=== PATIENT | female | born 1955 | race American Indian/Alaskan Native ===

== ENCOUNTER 2017-04-12 11:19 | Inpatient (IN) | payer MEDICARE ==
[2017-04-12 11:50] LABS: Basophils % (Auto) 0.3 % (0.0-1.8); Eosinophils % (Auto) 0.2 % (0.0-4.3); Mean Corpuscular HGB Conc 31 % (30-34); Mean Corpuscular Hemoglobin 29 pg (28-32); Mean Corpuscular Volume 92 fl (79-97); Platelet Count 257 K/mm3 (140-440); Red Blood Count 4.79 M/mm3 (3.65-5.03); Red Cell Distribution Width 13.8 % (13.2-15.2); White Blood Count 10.3 K/mm3 (4.5-11.0)
--- NOTE | 2017-04-12 12:04 | Emergency Department Report ---
HPI - General Chief Complaint: Hyperglycemia Time Seen by Provider: 04/12/17 11:31 - HPI HPI: This is a 61 year-old female presents to the emergency department, sent over by her PCP at [facility], with the complaint of hyperglycemia. Patient says that she went there for a regular checkup but had been feeling very fatigued and weak for the past few days. She was found to have a blood sugar greater than 500 or "high" on the Accu-Chek at the PCP office. Patient is a fbu-pqaxouy-ydednuvti diabetic on glipizide 2.5 mg and says that she takes compliantly. She also says that she checks her sugar and her blood sugar has been reasonable lately. She does admit that she has tried a new diet that involves drinking smoothies and/or shakes. She also has a past medical history of hypertension and arthritis. She denies any chest pain, abdominal pain, nausea, vomiting, dysuria. She has not taken anything and was not given anything for her symptoms prior to presentation. ED Past Medical Hx - Past Medical History Hx Hypertension: Yes Hx Diabetes: Yes Hx Arthritis: Yes - Surgical History Additional Surgical History: gastric bypass 2012 - Social History Smoking Status: Never Smoker Substance Use Type: None - Medications Home Medications: Home Medications Medication Instructions Recorded Confirmed Last Taken Type Gabapentin [Neurontin] 800 mg PO TID 05/04/13 04/12/17 04/10/17 History HYDROcodone/APAP 10-325 [[place] 1 each PO Q6HR PRN #20 tablet 05/04/13 04/12/17 04/10/17 Rx 10-325 mg TAB] Triamter/Hctz 37.5-25 mg 1 tab PO QDAY 04/12/17 04/12/17 04/10/17 History [Maxzide-25] glipiZIDE [Glucotrol Xl] 2.5 mg PO DAILY 04/12/17 04/12/17 04/10/17 History ED Review of Systems ROS: Stated complaint: BLOOD SUGAR HIGH Other details as noted in HPI Comment: All other systems reviewed and negative Constitutional: denies: chills, fever Eyes: denies: eye pain, eye discharge, vision change ENT: denies: ear pain, throat pain Respiratory: denies: cough, wheezing Cardiovascular: denies: chest pain, palpitations Endocrine: increased thirst. denies: unexplained weight loss Gastrointestinal: denies: abdominal pain, nausea, diarrhea Genitourinary: denies: urgency, dysuria, discharge Musculoskeletal: denies: back pain, joint swelling, arthralgia Skin: denies: rash, lesions Neurological: denies: headache, weakness, paresthesias Physical Exam - Physical Exam Vital Signs: Vital Signs 04/12/17 11:21 Temperature 98 F Pulse Rate 99 H Respiratory 18 Rate Blood Pressure 122/87 O2 Sat by Pulse 97 Oximetry Physical Exam: GENERAL: The patient is well-developed well-nourished. HENT: Normocephalic. Atraumatic. Patient has moist mucous membranes. EYES: Extraocular motions are intact. Pupils equal reactive to light bilaterally. NECK: Supple. Trachea is midline. CHEST/LUNGS: Clear to auscultation. There is no respiratory distress noted. HEART/CARDIOVASCULAR: Regular. There is no tachycardia. There is no murmur. ABDOMEN: Abdomen is soft, nontender. Patient has normal bowel sounds. There is no abdominal distention. SKIN: Skin is warm and dry. NEURO: The patient is awake, alert, and oriented. The patient is cooperative. The patient has no focal neurologic deficits. The patient has normal speech. MUSCULOSKELETAL: There is no tenderness or deformity. There is no limitation range of motion. There is no evidence of acute injury. ED Course Vital Signs 04/12/17 11:21 Temperature 98 F Pulse Rate 99 H Respiratory 18 Rate Blood Pressure 122/87 O2 Sat by Pulse 97 Oximetry ED Medical Decision Making - Lab Data Result diagrams: 04/12/17 11:34 04/12/17 11:34 - Medical Decision Making Patient has a blood sugar of 850 and elevated osmolality. She is non-insulin- dependent and this is more likely to be HHNK than DKA. Placed on a insulin drip and will be admitted to the hospital and has been accepted by Dr. Gregory. - Differential Diagnosis DKA, HHNK, Non compliance Critical Care Time: No Critical care attestation.: If time is entered above; I have spent that time in minutes in the direct care of this critically ill patient, excluding procedure time. ED Disposition Clinical Impression: HHNC (hyperglycemic hyperosmolar nonketotic coma) Uncontrolled diabetes mellitus Qualifiers: Diabetes mellitus type: type 2 Diabetes mellitus complication status: with hyperosmolarity Diabetes mellitus complication detail: without coma Diabetes mellitus senior care insulin use: without senior care use Qualified Code(s): E11.00 - Type 2 diabetes mellitus with hyperosmolarity without nonketotic hyperglycemic -hyperosmolar coma ([facility]) Disposition: 09 OP ADMIT IP TO THIS HOSP Is pt being admited?: Yes Condition: Fair Instructions: Diabetes Mellitus Type 2 in Adults (ED) Time of Disposition: 13:51
[2017-04-12 12:06] LABS: Hemoglobin 13.7 gm/dl (10.1-14.3)
[2017-04-12 12:12] LABS: Albumin 4.1 g/dL (3.9-5); Albumin/Globulin Ratio 0.9 %; Bilirubin,Total 0.4 mg/dL (0.1-1.2); Calcium 9.4 mg/dL (8.4-10.2); Chloride 80.6 mmol/L (98-107); Potassium 5.4 mmol/L (3.6-5.0); Total Protein 8.7 g/dL (6.3-8.2)
[2017-04-12] MEDS ORDERED: D50W (25GM) Syringe IV PRN ×2 (12:28→13:00)
[2017-04-12] MEDS ORDERED: NACL 0.9% 1000 ML 1,000 ML IV ONE (12:29)
[2017-04-12] MEDS ORDERED: NACL 0.9% 1000 ML 1,000 ML ONE (12:31)
--- NOTE | 2017-04-12 12:48 | History and Physical Report ---
History of Present Illness Chief complaint: My blood sugar is high History of present illness: 61 YO Female with HTN, DM, OA presents to ED for evaluation. Pt states that she has been feeling tired for the past week. Pt acknowledges polydipsia, polyuria, and polyphagia. Pt presented to her PCP for evaluation for evaluation. Pt found to have a serum glucose of +500 on glucometer and was subsequently sent to ED for evaluation. Pt currently treated with glipizide 2.5 mg and says that she takes compliantly. Pt states that she checks her sugar and her blood sugar has been controlled. Pt acknowledges consuming a new diet that involves drinking smoothies and/or shakes but does not allow for monitoring of carbohydrates. Pt seen and evaluated in ED and found to have a serum glucose of 850, and initiated on insulin drip IAW DKA protocol and admitted to ICU. Pt symptoms improved with therapy, and serum glucose normalized. Pt subsquently downgraded to medical floor. Past History Past Medical History: arthritis, diabetes, hypertension Past Surgical History: Other (Gastric bypass) Social history: single. denies: smoking, alcohol abuse, prescription drug abuse Family history: diabetes, hypertension Medications and Allergies Allergies Allergy/AdvReac Type Severity Reaction Status Date / Time No Known Allergies Allergy Unverified 05/04/13 05:36 Home Medications Medication Instructions Recorded Confirmed Last Taken Type Gabapentin [Neurontin] 800 mg PO TID 05/04/13 04/12/17 04/10/17 History HYDROcodone/APAP 10-325 [[place] 1 each PO Q6HR PRN #20 tablet 05/04/13 04/12/17 04/10/17 Rx 10-325 mg TAB] Triamter/Hctz 37.5-25 mg 1 tab PO QDAY 04/12/17 04/12/17 04/10/17 History [Maxzide-25] glipiZIDE [Glucotrol Xl] 2.5 mg PO DAILY 04/12/17 04/12/17 04/10/17 History Active Meds: Active Medications Dextrose (D50w (25gm) Syringe) 0 ml IV PRN PRN PRN Reason: Hypoglycemia Sodium Chloride (Nacl 0.9% 1000 Ml) 1,000 mls @ 999 mls/hr IV BOLUS ONE Stop: 04/12/17 13:29 Last Admin: 04/12/17 12:33 Dose: 999 mls/hr Insulin Human Regular 100 (units/ Sodium Chloride) 100 mls @ 6 mls/hr IV TITR THOMAS; 6 UNITS/HR PRN Reason: Protocol Review of Systems Constitutional: no weight loss, no weight gain, no fever, no chills Ears, nose, mouth and throat: no ear pain, no ear discharge, no tinnitis, no decreased hearing, no nose pain Breasts: no change in shape, no swelling, no mass Cardiovascular: no chest pain, no orthopnea, no palpitations, no rapid/ irregular heart beat, no edema, no syncope Respiratory: no cough, no cough with sputum, no excessive sputum, no hemoptysis Gastrointestinal: no abdominal pain, no nausea, no vomiting, no diarrhea Genitourinary Female: no pelvic pain, no flank pain, no menorrhagia, no dysuria Rectal: no pain, no incontinence, no bleeding Musculoskeletal: no neck stiffness, no neck pain, no shooting arm pain, no arm numbness/tingling Integumentary: no rash, no pruritis, no redness, no sores, no wounds Neurological: no head injury, no transient paralysis, no paralysis, no weakness , no parathesias, no numbness, no tingling Psychiatric: no anxiety, no memory loss, no change in sleep habits, no sleep disturbances, no insomnia, no hypersomnia, no change in appetite Endocrine: polyphagia, excessive thirst, polydipsia, polyuria, no cold intolerance, no heat intolerance Hematologic/Lymphatic: no easy bruising, no easy bleeding Allergic/Immunologic: no urticaria, no allergic rhinitis, no wheezing Exam - Constitutional Vitals: Temp Pulse Resp BP Pulse Ox 98 F 99 H 18 122/87 97 04/12/17 11:21 04/12/17 11:21 04/12/17 11:21 04/12/17 11:21 04/12/17 11:21 General appearance: Present: mild distress - EENT Eyes: Present: PERRL ENT: hearing intact, clear oral mucosa - Neck Neck: Present: supple, normal ROM - Respiratory Respiratory effort: normal Respiratory: bilateral: CTA - Cardiovascular Heart Sounds: Present: S1 & S2. Absent: rub, click - Extremities Extremities: pulses symmetrical, No edema Peripheral Pulses: within normal limits - Abdominal General gastrointestinal: Present: soft, non-tender, non-distended, normal bowel sounds Female genitourinary: Present: normal - Integumentary Integumentary: Present: clear, warm, dry, clammy, decreased turgor - Musculoskeletal Musculoskeletal: gait normal, strength equal bilaterally - Psychiatric Psychiatric: appropriate mood/affect, intact judgment & insight - Neurologic Neurologic: CNII-XII intact, moves all extremities Results - Labs CBC & Chem 7: 04/12/17 11:34 04/12/17 17:41 Labs: Abnormal lab results 04/12/17 04/12/17 04/12/17 Range/Units 11:29 11:34 11:34 Hct 44.0 H (30.3-42.9) % Seg Neutrophils % 81.8 H (40.0-70.0) % Seg Neutrophils # 8.4 H (1.8-7.7) K/mm3 Sodium 124 L (137-145) mmol/L Potassium 5.4 H (3.6-5.0) mmol/L Chloride 80.6 L (98-107) mmol/L BUN 49 H (7-17) mg/dL Creatinine 2.4 H (0.7-1.2) mg/dL Glucose 850 H* (65-100) mg/dL POC Glucose > 500 H (70-105) Alkaline Phosphatase 246 H (35-129) units/L Total Protein 8.7 H (6.3-8.2) g/dL Assessment and Plan - Patient Problems (1) HHNC (hyperglycemic hyperosmolar nonketotic coma) Current Visit: Yes Status: Acute Plan to address problem: Admit to ICU, DKA protocol, Insulin drip, accu check, serial bmp, monitor uop q shift, The high probability of a clinically significant, sudden or life threatening deterioration of the [endocrine, renal, pulmonary] system(s) required my full and direct attention, intervention and personal management. The aggregate critical care time was [65] minutes. This time is in addition to time spent performing reported procedures but includes the following: [x] Data Review and interpretation [x] Patient assessment and monitoring of vital signs [x] Documentation [x] Medication orders and management (2) HTN (hypertension) Current Visit: Yes Status: Acute Plan to address problem: monitor bp q shift, supportive care, (3) Arthritis Current Visit: Yes Status: Acute Plan to address problem: pain control, supportive care, (4) DVT prophylaxis Current Visit: Yes Status: Acute
[2017-04-12 12:56] LABS: Magnesium 2.7 mg/dL (1.7-2.3); Phosphorous 4.9 mg/dL (2.5-4.5)
[2017-04-12] MEDS ORDERED: MILK OF MAGNESIA PO PRN (13:00)
[2017-04-12] MEDS ORDERED: ALUM-MAG HYDROX-SIMETH 200-200-20MG/5ML PO PRN (13:00)
[2017-04-12] MEDS ORDERED: DULCOLAX PR PRN (13:00)
[2017-04-12] MEDS ORDERED: NovoLIN R 100 UNITS in NACL 0.9% 99 ML IV SCH ×2 (13:00)
[2017-04-12 13:58] LABS: Calcium 8.9 mg/dL (8.4-10.2); Chloride 83.8 mmol/L (98-107); Potassium 5.8 mmol/L (3.6-5.0)
[2017-04-12 14:11] LABS: Magnesium 2.7 mg/dL (1.7-2.3); Phosphorous 4.5 mg/dL (2.5-4.5)
[2017-04-12 14:47] LABS: Bilirubin,Urine NEG (Negative); Blood,Urine NEG (Negative); Ketones,Urine TR mg/dL (Negative); Leukocyte Esterase,Urine NEG (Negative); Mucus,Urine FEW /HPF; Nitrite,Urine NEG (Negative); Protein,Urine <15 mg/dL mg/dL (Negative); Urobilinogen,Urine < 2.0 mg/dL (<2.0)
[2017-04-12 15:26] LABS: Calcium 9.2 mg/dL (8.4-10.2); Chloride 88.8 mmol/L (98-107); Potassium 4.7 mmol/L (3.6-5.0)
[2017-04-12 18:13] LABS: Calcium 9.6 mg/dL (8.4-10.2); Chloride 92.1 mmol/L (98-107); Potassium 4.1 mmol/L (3.6-5.0)
[2017-04-12] MEDS: NACL 0.45% 1000 ML 1,000 ML IV SCH (20:03)
[2017-04-12 21:14] LABS: Calcium 9.6 mg/dL (8.4-10.2); Potassium 4.8 mmol/L (3.6-5.0)
[2017-04-13] MEDS: NOVOLOG SUB-Q SCH ×5 (00:26→23:14)
[2017-04-13 02:08] LABS: Calcium 8.8 mg/dL (8.4-10.2); Chloride 90.6 mmol/L (98-107)
[2017-04-13] MEDS: NACL 0.45% 1000 ML 1,000 ML IV SCH ×3 (03:19→20:47)
[2017-04-13 05:19] LABS: Calcium 8.9 mg/dL (8.4-10.2); Potassium 4.2 mmol/L (3.6-5.0)
[2017-04-13] MEDS ORDERED: NOVOLOG SUB-Q SCH (07:30)
--- NOTE | 2017-04-13 08:05 | Progress Note ---
<RODRIGO BOJORQUEZ - Last Filed: 04/13/17 15:27> Assessment and Plan Assessment and plan: Patient is a 61 years old Female with HTN, DM, OA presents to ED for evaluation. Pt states that she has been feeling tired for the past week. Pt acknowledges polydipsia, polyuria, and polyphagia. Diabetes mellitus with hyperglycemic hyperosmolar nonketotic coma Insulin adjusted Started on metformin Acute check before meals and at bedtime Sliding scale Insulin/NovoLog HTN (hypertension) Resume home antihypertensive medication Closely monitor blood pressure Arthritis Pain control Supportive care DVT prophylaxis Lovenox History Interval history: Patient denies having any pain at the present time, she denies nausea and vomiting. Labs and nursing notes reviewed. Hospitalist Physical - Constitutional Vitals: Temp Pulse Resp BP Pulse Ox 98.6 F 94 H 20 105/78 97 04/13/17 07:29 04/13/17 07:29 04/13/17 07:29 04/13/17 07:29 04/13/17 07:29 General appearance: Present: mild distress - EENT Eyes: Present: PERRL ENT: hearing intact - Respiratory Respiratory effort: normal Respiratory: bilateral: CTA - Cardiovascular Rhythm: regular Heart Sounds: Present: S1 & S2 - Abdominal General gastrointestinal: soft, non-tender - Integumentary Integumentary: Present: clear, warm, dry - Psychiatric Psychiatric: appropriate mood/affect - Neurologic Neurologic: moves all extremities - Allied Health Allied health notes reviewed: nursing Results - Labs CBC & Chem 7: 04/12/17 11:34 04/13/17 04:29 Labs: Laboratory Last Values WBC 10.3 K/mm3 (4.5-11.0) 04/12/17 11:34 RBC 4.79 M/mm3 (3.65-5.03) 04/12/17 11:34 Hgb 13.7 gm/dl (10.1-14.3) 04/12/17 11:34 Hct 44.0 % (30.3-42.9) H 04/12/17 11:34 MCV 92 fl (79-97) 04/12/17 11:34 MCH 29 pg (28-32) 04/12/17 11:34 MCHC 31 % (30-34) 04/12/17 11:34 RDW 13.8 % (13.2-15.2) 04/12/17 11:34 Plt Count 257 K/mm3 (140-440) 04/12/17 11:34 Lymph % (Auto) 14.1 % (13.4-35.0) 04/12/17 11:34 [place] % (Auto) 3.6 % (0.0-7.3) 04/12/17 11:34 Eos % (Auto) 0.2 % (0.0-4.3) 04/12/17 11:34 Baso % (Auto) 0.3 % (0.0-1.8) 04/12/17 11:34 Lymph # 1.5 K/mm3 (1.2-5.4) 04/12/17 11:34 [place] # 0.4 K/mm3 (0.0-0.8) 04/12/17 11:34 Eos # 0.0 K/mm3 (0.0-0.4) 04/12/17 11:34 Baso # 0.0 K/mm3 (0.0-0.1) 04/12/17 11:34 Seg Neutrophils % 81.8 % (40.0-70.0) H 04/12/17 11:34 Seg Neutrophils # 8.4 K/mm3 (1.8-7.7) H 04/12/17 11:34 VBG pH 7.332 (7.320-7.420) 04/12/17 11:34 Sodium 133 mmol/L (137-145) L 04/13/17 04:29 Potassium 4.2 mmol/L (3.6-5.0) 04/13/17 04:29 Chloride 94.0 mmol/L (98-107) L 04/13/17 04:29 Carbon Dioxide 24 mmol/L (22-30) 04/13/17 04:29 Anion Gap 19 mmol/L 04/13/17 04:29 BUN 44 mg/dL (7-17) H 04/13/17 04:29 Creatinine 1.9 mg/dL (0.7-1.2) H 04/13/17 04:29 Estimated GFR 33 ml/min 04/13/17 04:29 BUN/Creatinine Ratio 23 % 04/13/17 04:29 Glucose 290 mg/dL (65-100) H 04/13/17 04:29 POC Glucose 266 (70-105) H 04/13/17 05:45 Osmolality 327 Mosm/kg 04/12/17 11:34 Calcium 8.9 mg/dL (8.4-10.2) 04/13/17 04:29 Phosphorus 4.50 mg/dL (2.5-4.5) 04/12/17 11:34 Magnesium 2.70 mg/dL (1.7-2.3) H 04/12/17 11:34 Total Bilirubin 0.40 mg/dL (0.1-1.2) 04/12/17 11:34 AST 13 units/L (5-40) 04/12/17 11:34 ALT 25 units/L (7-56) 04/12/17 11:34 Alkaline Phosphatase 246 units/L (35-129) H 04/12/17 11:34 Total Protein 8.7 g/dL (6.3-8.2) H 04/12/17 11:34 Albumin 4.1 g/dL (3.9-5) 04/12/17 11:34 Albumin/Globulin Ratio 0.9 % 04/12/17 11:34 Urine Color Straw (Yellow) 04/12/17 14:23 Urine Turbidity Clear (Clear) 04/12/17 14:23 Urine pH 6.0 (5.0-7.0) 04/12/17 14:23 Ur Specific [place] 1.020 (1.003-1.030) 04/12/17 14:23 Urine Protein <15 mg/dl mg/dL (Negative) 04/12/17 14:23 Urine Glucose (UA) >=500 mg/dL (Negative) 04/12/17 14:23 Urine Ketones Tr mg/dL (Negative) 04/12/17 14:23 Urine Blood Neg (Negative) 04/12/17 14:23 Urine Nitrite Neg (Negative) 04/12/17 14:23 Urine Bilirubin Neg (Negative) 04/12/17 14:23 Urine Urobilinogen < 2.0 mg/dL (<2.0) 04/12/17 14:23 Ur Leukocyte Esterase Neg (Negative) 04/12/17 14:23 Urine WBC (Auto) 2.0 /HPF (0.0-6.0) 04/12/17 14:23 Urine RBC (Auto) 1.0 /HPF (0.0-6.0) 04/12/17 14:23 U Epithel Cells (Auto) 1.0 /HPF (0-13.0) 04/12/17 14:23 Urine Mucus Few /HPF 04/12/17 14:23 <LOLIS SAGASTUME R - Last Filed: 04/13/17 23:13> Assessment and Plan Assessment and plan: I saw and evaluated the patient. I agree with the findings and the plan of care as documented in the Nurse Practitioner's~note, with the following corrections and additions. Will check a1c level and place on Novolin 70/30 10 unit BID. Hospitalist Physical - Constitutional Vitals: Temp Pulse Resp BP Pulse Ox 98.3 F 97 H 16 98/72 98 04/13/17 20:13 04/13/17 20:13 04/13/17 20:13 04/13/17 20:13 04/13/17 20:13 Results - Labs CBC & Chem 7: 04/12/17 11:34 04/13/17 04:29 Labs: Laboratory Last Values WBC 10.3 K/mm3 (4.5-11.0) 04/12/17 11:34 RBC 4.79 M/mm3 (3.65-5.03) 04/12/17 11:34 Hgb 13.7 gm/dl (10.1-14.3) 04/12/17 11:34 Hct 44.0 % (30.3-42.9) H 04/12/17 11:34 MCV 92 fl (79-97) 04/12/17 11:34 MCH 29 pg (28-32) 04/12/17 11:34 MCHC 31 % (30-34) 04/12/17 11:34 RDW 13.8 % (13.2-15.2) 04/12/17 11:34 Plt Count 257 K/mm3 (140-440) 04/12/17 11:34 Lymph % (Auto) 14.1 % (13.4-35.0) 04/12/17 11:34 [place] % (Auto) 3.6 % (0.0-7.3) 04/12/17 11:34 Eos % (Auto) 0.2 % (0.0-4.3) 04/12/17 11:34 Baso % (Auto) 0.3 % (0.0-1.8) 04/12/17 11:34 Lymph # 1.5 K/mm3 (1.2-5.4) 04/12/17 11:34 [place] # 0.4 K/mm3 (0.0-0.8) 04/12/17 11:34 Eos # 0.0 K/mm3 (0.0-0.4) 04/12/17 11:34 Baso # 0.0 K/mm3 (0.0-0.1) 04/12/17 11:34 Seg Neutrophils % 81.8 % (40.0-70.0) H 04/12/17 11:34 Seg Neutrophils # 8.4 K/mm3 (1.8-7.7) H 04/12/17 11:34 VBG pH 7.332 (7.320-7.420) 04/12/17 11:34 Sodium 133 mmol/L (137-145) L 04/13/17 04:29 Potassium 4.2 mmol/L (3.6-5.0) 04/13/17 04:29 Chloride 94.0 mmol/L (98-107) L 04/13/17 04:29 Carbon Dioxide 24 mmol/L (22-30) 04/13/17 04:29 Anion Gap 19 mmol/L 04/13/17 04:29 BUN 44 mg/dL (7-17) H 04/13/17 04:29 Creatinine 1.9 mg/dL (0.7-1.2) H 04/13/17 04:29 Estimated GFR 33 ml/min 04/13/17 04:29 BUN/Creatinine Ratio 23 % 04/13/17 04:29 Glucose 290 mg/dL (65-100) H 04/13/17 04:29 POC Glucose 170 (70-105) H 04/13/17 22:03 Hemoglobin A1c 16.6 % (4-6) H 04/13/17 11:54 Osmolality 327 Mosm/kg 04/12/17 11:34 Calcium 8.9 mg/dL (8.4-10.2) 04/13/17 04:29 Phosphorus 4.50 mg/dL (2.5-4.5) 04/12/17 11:34 Magnesium 2.70 mg/dL (1.7-2.3) H 04/12/17 11:34 Total Bilirubin 0.40 mg/dL (0.1-1.2) 04/12/17 11:34 AST 13 units/L (5-40) 04/12/17 11:34 ALT 25 units/L (7-56) 04/12/17 11:34 Alkaline Phosphatase 246 units/L (35-129) H 04/12/17 11:34 Total Protein 8.7 g/dL (6.3-8.2) H 04/12/17 11:34 Albumin 4.1 g/dL (3.9-5) 04/12/17 11:34 Albumin/Globulin Ratio 0.9 % 04/12/17 11:34 Urine Color Straw (Yellow) 04/12/17 14:23 Urine Turbidity Clear (Clear) 04/12/17 14:23 Urine pH 6.0 (5.0-7.0) 04/12/17 14:23 Ur Specific [place] 1.020 (1.003-1.030) 04/12/17 14:23 Urine Protein <15 mg/dl mg/dL (Negative) 04/12/17 14:23 Urine Glucose (UA) >=500 mg/dL (Negative) 04/12/17 14:23 Urine Ketones Tr mg/dL (Negative) 04/12/17 14:23 Urine Blood Neg (Negative) 04/12/17 14:23 Urine Nitrite Neg (Negative) 04/12/17 14:23 Urine Bilirubin Neg (Negative) 04/12/17 14:23 Urine Urobilinogen < 2.0 mg/dL (<2.0) 04/12/17 14:23 Ur Leukocyte Esterase Neg (Negative) 04/12/17 14:23 Urine WBC (Auto) 2.0 /HPF (0.0-6.0) 04/12/17 14:23 Urine RBC (Auto) 1.0 /HPF (0.0-6.0) 04/12/17 14:23 U Epithel Cells (Auto) 1.0 /HPF (0-13.0) 04/12/17 14:23 Urine Mucus Few /HPF 04/12/17 14:23
[2017-04-13] MEDS ORDERED: NORCO 10/325 PO PRN (11:43)
[2017-04-13] MEDS ORDERED: GLUCOTROL XL PO SCH (12:00)
[2017-04-13] MEDS: GLUCOTROL XL PO SCH (12:41)
[2017-04-13] MEDS: NEURONTIN PO SCH ×2 (13:07→20:48)
[2017-04-13] MEDS ORDERED: NON-FORMULARY (Gabapentin [Neurontin] 800 MG) PO SCH (14:00)
[2017-04-13] MEDS: GLUCOPHAGE PO SCH (16:30)
[2017-04-13] MEDS ORDERED: GLUCOPHAGE PO SCH (17:00)
[2017-04-14 05:02] LABS: Calcium 8.9 mg/dL (8.4-10.2); Chloride 96.6 mmol/L (98-107); Potassium 3.6 mmol/L (3.6-5.0)
[2017-04-14] MEDS: NOVOLOG SUB-Q SCH ×3 (08:49→17:36)
[2017-04-14] MEDS: GLUCOPHAGE PO SCH (08:58)
[2017-04-14] MEDS: GLUCOTROL XL PO SCH (08:58)
[2017-04-14] MEDS: NEURONTIN PO SCH ×2 (08:58→13:41)
[2017-04-14 12:16] VITALS: BP 118/83
--- NOTE | 2017-04-14 12:54 | Discharge Summary ---
Providers - Providers Date of Admission: 04/12/17 12:50 Date of discharge: 04/14/17 Attending physician: LOLIS SAGASTUME 04/12/17 13:09 Consult to Physician [CONS] Stat Consulting Provider: TORRIE PEDERSEN Reason For Exam: ICU admission Place consult to:: answering service Notified:: yes Phone number called:: [phone] Was contact made?: Yes If yes, spoke with:: Nani Time called:: 13:20 Primary care physician: TOSIN SMITH Hospitalization Condition: Fair Hospital course: Patient is a 61 years old Female with HTN, DM, OA presents to ED for evaluation. Pt states that she has been feeling tired for the past week. Patient acknowledged polydipsia, polyuria, and polyphagia. His BG was 850 on admission with creatinine 2.4. He was admitted for forther management and evaluation. Discharge diagnosis and management: /Diabetes mellitus with hyperglycemic hyperosmolar nonketotic coma resolved with insulin and aggressive iv fluid hydration Started on metformin and glipizide monitored with Accque check before meals and at bedtime with SSI Placed on novolin 70/30, he will further adjust his dose outpt with PCP HbA1c was 16.6 /HTN (hypertension) Resumed home antihypertensive medication Closely monitor blood pressure /Arthritis Pain control Supportive care /EVERETT likely vasomotor nephropathy improved with IV fluid /DVT prophylaxis Lovenox Physical exam: General appearance: Present: mild distress - EENT Eyes: Present: PERRL ENT: hearing intact - Respiratory Respiratory effort: normal Respiratory: bilateral: CTA - Cardiovascular Rhythm: regular Heart Sounds: Present: S1 & S2 - Abdominal General gastrointestinal: soft, non-tender - Integumentary Integumentary: Present: clear, warm, dry - Psychiatric Psychiatric: appropriate mood/affect - Neurologic Neurologic: moves all extremities Disposition: DC-01 TO HOME OR SELFCARE Time spent for discharge: 32 minutes Core Measure Documentation - Palliative Care Palliative Care/ Comfort Measures: Not Applicable - Core Measures Any of the following diagnoses?: none Exam - Constitutional Vitals: Temp Pulse Resp BP Pulse Ox 96.6 F L 94 H 15 118/83 98 04/14/17 12:12 04/14/17 12:12 04/14/17 12:12 04/14/17 12:12 04/14/17 12:12 Plan Activity: advance as tolerated Weight Bearing Status: Weight Bear as Tolerated Diet: diabetic Follow up with: TOSIN SMITH MD [Primary Care Provider] - 3-5 Days Prescriptions: glipiZIDE XL [Glucotrol Xl] 5 mg PO QDDIAB #60 tablet Insulin NPH/Regular [NovoLIN 70/30] 12 unit SUB-Q BIDDIAB 30 Days units
--- NOTE | 2017-04-19 12:26 | Query- General ---
Jack Villar Cong Date:___04/19/17 Fleet Service Manager/CDS:___[place] / [place] Phone#:___[phone] Exercise your independent professional judgment when responding to this query. Questions asked do not imply a particular answer is desired or expected. We greatly appreciate your clarification on this issue. Clinical Documentation States: 61 year old female was admitted on 04/12/17 The discharge summary (Dr. hickey) states " Patient is a 61 years old Female with HTN, DM, OA presents to ED for evaluation /Diabetes mellitus with hyperglycemic hyperosmolar nonketotic coma /HTN (hypertension) " Clinical Findings Show (include reference to source document): 04/12/17 04/14/17 Creatinine: 2.4 1.4 BUN/Creatinine Ratio: 22 21 Given the above clinical scenario can you please provide an appropriate diagnosis based on your knowledge of the patient: PHYSICIAN RESPONSE: [ ] Cortical necrosis [ ] Lower Tubular nephrosis [ ] Medullary Necrosis [ ] Shock kidney [ ] Tubular necrosis [ X ] Vasomotor nephropathy [ ] Tubular nephrosis [ ] Renal tubular stasis [ ] Other (Please specify) : [ ] Clinically undeterminable Present on Admission: [ X] Yes (Y) [ ] Clinically undeterminable (W) [ ]No(N) Please also document response in your Progress Notes and/or Discharge Summary and indicate if the condition was present on admission. MTDD
== END 2017-04-14 14:00 | disposition home or self-care (01) | DRG 682 ==
LOC: ED 11:19 → CC1 12:50 → 3A 19:44
PROVIDERS: ADMIT Internal Medicine; ATTEND Internal Medicine
DX: N17.0 Acute kidney failure with tubular necrosis (principal); E11.01 Type 2 diabetes mellitus with hyperosmolarity with coma; E72.51 Non-ketotic hyperglycinemia; I10 Essential (primary) hypertension; M19.90 Unspecified osteoarthritis, unspecified site; Z98.84 Bariatric surgery status; Z83.3 Family history of diabetes mellitus; Z82.49 Family history of ischemic heart disease and other diseases of the circulatory system; Z79.899 Other long term (current) drug therapy
CPT/HCPCS: 36415; 80048; 80053; 81001; 82805; 82947; 82962; 83036; 83735; 83930; 84100; 85025; 96361; 96365; J1815; J7030

== ENCOUNTER 2017-05-04 07:26 | Outpatient (CLI) | payer MEDICARE ==
--- NOTE | 2017-05-04 08:10 | XRay Report ---
Chest 2 views: History: Acute respiratory infection. Findings: Normal cardiomediastinal silhouette. Trachea is midline. No consolidation, pneumothorax or pleural effusion. Impression: No acute cardiopulmonary findings .
== END 2017-05-04 07:27 | disposition home or self-care (01) ==
LOC: XRAY 07:26
PROVIDERS: ATTEND Nurse Practitioner
DX: J06.9 Acute upper respiratory infection, unspecified (principal); I10 Essential (primary) hypertension; E11.9 Type 2 diabetes mellitus without complications
CPT/HCPCS: 71046

== ENCOUNTER 2018-08-15 08:16 | Outpatient (CLI) | payer MEDICARE | END 2018-08-15 08:17 | disposition home or self-care (01) | LOC: LAB 08:16 | PROVIDERS: ATTEND Internal Medicine | DX: E11.65 Type 2 diabetes mellitus with hyperglycemia (principal); E11.40 Type 2 diabetes mellitus with diabetic neuropathy, unspecified; E78.2 Mixed hyperlipidemia | CPT/HCPCS: 36415; 83036 ==

== ENCOUNTER 2018-11-16 21:59 | Emergency (ER) | payer MEDICARE ==
--- NOTE | 2018-11-16 22:23 | Event Note ---
ED Screening Note Date of service: 11/16/18 Time: 22:21 ED Screening Note: 63 y/o female comes in for 3 weeks of cough. PMH DM This initial assessment/diagnostic orders/clinical plan/treatment(s) is/are subject to change based on patients health status, clinical progression and re-assessment by fellow clinical providers in the ED. Further treatment and workup at subsequent clinical providers discretion. Patient/guardian urged not to elope from the ED as their condition may be serious if not clinically assessed and managed. Initial orders include:
--- NOTE | 2018-11-16 22:51 | XRay Report ---
CHEST 2 VIEWS INDICATION / CLINICAL INFORMATION: Cough for 3 weeks. COMPARISON: 2 views of the chest from 05/04/2017. FINDINGS: SUPPORT DEVICES: None. HEART / MEDIASTINUM: No significant abnormality. LUNGS / PLEURA: No significant pulmonary or pleural abnormality. No pneumothorax. ADDITIONAL FINDINGS: No significant additional findings. IMPRESSION: No acute findings. Signer Name: Jean Light MD Signed: 11/16/2018 10:46 PM Workstation Name: [id number]
[2018-11-17] MEDS ORDERED: ATROVENT IH ONE (00:18)
[2018-11-17] MEDS ORDERED: PROVENTIL IH ONE (00:18)
--- NOTE | 2018-11-17 00:58 | Emergency Department Report ---
ED General Adult HPI - General Chief complaint: Upper Respiratory Infection Stated complaint: FLU SYMPTOMS Time Seen by Provider: 11/17/18 00:12 Source: patient Mode of arrival: Ambulatory Limitations: No Limitations - History of Present Illness Initial comments: She presents to the emergency department with a chief complaint of a cough 3 weeks. Patient states the cough has been productive and states at times she is having fevers with chills and body aches. The patient states he does not have body aches but she is concerned about the prolonged cough -: Gradual Severity scale (0 -10): 0 Consistency: constant Improves with: none Worsens with: none Associated Symptoms: denies other symptoms Treatments Prior to Arrival: none - Related Data Home Medications Medication Instructions Recorded Confirmed Last Taken Gabapentin [Neurontin] 800 mg PO TID 05/04/13 04/12/17 04/10/17 glipiZIDE [Glucotrol Xl] 2.5 mg PO DAILY 04/12/17 04/12/17 04/10/17 Previous Rx's Medication Instructions Recorded Last Taken Type HYDROcodone/APAP 10-325 [Rachel 1 each PO Q6HR PRN #20 tablet 05/04/13 04/10/17 Rx 10-325 mg TAB] Insulin NPH/Regular [NovoLIN 70/30] 12 unit SUB-Q BIDDIAB 30 Days 04/14/17 Unknown Rx units glipiZIDE XL [Glucotrol Xl] 5 mg PO QDDIAB #60 tablet 04/14/17 Unknown Rx ALBUTEROL Inhaler (OR & NICU) 2 puff IH Q4HR PRN #1 inhalation 11/17/18 Unknown Rx [ProAir HFA Inhaler] Azithromycin [Zithromax Z-SADE] 250 mg PO DAILY #6 tablet 11/17/18 Unknown Rx Benzonatate [Tessalon Perles] 100 mg PO Q8HR PRN #20 capsule 11/17/18 Unknown Rx Codeine Phosphate/Guaifenesin 180 ml PO Q12HR PRN #180 liquid 11/17/18 Unknown Rx [Guaifenesin-Codeine Syrup] predniSONE [Deltasone] 20 mg PO DAILY #15 tablet 11/17/18 Unknown Rx Allergies Allergy/AdvReac Type Severity Reaction Status Date / Time No Known Allergies Allergy Unverified 05/04/13 05:36 ED Review of Systems ROS: Stated complaint: FLU SYMPTOMS Other details as noted in HPI Comment: All other systems reviewed and negative Constitutional: denies: chills, fever Eyes: denies: eye pain, eye discharge, vision change ENT: denies: ear pain, throat pain Respiratory: cough. denies: shortness of breath, wheezing Cardiovascular: denies: chest pain, palpitations Endocrine: no symptoms reported Gastrointestinal: denies: abdominal pain, nausea, diarrhea Genitourinary: denies: urgency, dysuria, discharge Musculoskeletal: denies: back pain, joint swelling, arthralgia Skin: denies: rash, lesions Neurological: denies: headache, weakness, paresthesias Psychiatric: denies: anxiety, depression Hematological/Lymphatic: denies: easy bleeding, easy bruising ED Past Medical Hx - Past Medical History Hx Hypertension: Yes Hx Diabetes: Yes Hx Arthritis: Yes - Surgical History Past Surgical History?: Yes Additional Surgical History: gastric bypass 2013 - Social History Smoking Status: Never Smoker Substance Use Type: None - Medications Home Medications: Home Medications Medication Instructions Recorded Confirmed Last Taken Type Gabapentin [Neurontin] 800 mg PO TID 05/04/13 04/12/17 04/10/17 History HYDROcodone/APAP 10-325 [Rachel 1 each PO Q6HR PRN #20 tablet 05/04/13 04/12/17 04/10/17 Rx 10-325 mg TAB] glipiZIDE [Glucotrol Xl] 2.5 mg PO DAILY 04/12/17 04/12/17 04/10/17 History Insulin NPH/Regular [NovoLIN 70/30] 12 unit SUB-Q BIDDIAB 30 Days 04/14/17 Unknown Rx units glipiZIDE XL [Glucotrol Xl] 5 mg PO QDDIAB #60 tablet 04/14/17 Unknown Rx ALBUTEROL Inhaler (OR & NICU) 2 puff IH Q4HR PRN #1 inhalation 11/17/18 Unknown Rx [ProAir HFA Inhaler] Azithromycin [Zithromax Z-SADE] 250 mg PO DAILY #6 tablet 11/17/18 Unknown Rx Benzonatate [Tessalon Perles] 100 mg PO Q8HR PRN #20 capsule 11/17/18 Unknown Rx Codeine Phosphate/Guaifenesin 180 ml PO Q12HR PRN #180 liquid 11/17/18 Unknown Rx [Guaifenesin-Codeine Syrup] predniSONE [Deltasone] 20 mg PO DAILY #15 tablet 11/17/18 Unknown Rx ED Physical Exam - General Limitations: No Limitations General appearance: alert, in no apparent distress - Head Head exam: Present: atraumatic, normocephalic - Eye Eye exam: Present: normal appearance, PERRL, EOMI - ENT ENT exam: Present: mucous membranes moist - Neck Neck exam: Present: normal inspection - Respiratory Respiratory exam: Present: normal lung sounds bilaterally, wheezes. Absent: respiratory distress, rales - Cardiovascular Cardiovascular Exam: Present: regular rate, normal rhythm. Absent: systolic murmur, diastolic murmur, rubs, gallop - GI/Abdominal GI/Abdominal exam: Present: soft, normal bowel sounds - Extremities Exam Extremities exam: Present: normal inspection - Back Exam Back exam: Present: normal inspection - Neurological Exam Neurological exam: Present: alert, oriented X3, CN II-XII intact. Absent: motor sensory deficit - Psychiatric Psychiatric exam: Present: normal affect, normal mood - Skin Skin exam: Present: warm, dry, intact, normal color. Absent: rash ED Course Vital Signs 11/16/18 11/16/18 11/17/18 22:03 22:21 00:26 Temperature 99.0 F 99 F Pulse Rate 125 H 125 H Pulse Rate [ 87 Bilateral] Respiratory 18 18 Rate Respiratory 18 Rate [Bilateral ] Blood Pressure 137/94 137/94 O2 Sat by Pulse 97 97 Oximetry ED Medical Decision Making - Radiology Data Radiology results: report reviewed - Medical Decision Making Patient improved after breathing treatment Critical care attestation.: If time is entered above; I have spent that time in minutes in the direct care of this critically ill patient, excluding procedure time. ED Disposition Clinical Impression: Acute bronchitis Disposition: DC-01 TO HOME OR SELFCARE Is pt being admited?: No Does the pt Need Aspirin: No Condition: Stable Instructions: Acute Bronchitis (ED) Additional Instructions: return if worse Referrals: ANSON DAVIDSON MD [Primary Care Provider] - 3-5 Days Time of Disposition: 00:58
[2018-11-17 01:28] VITALS: BP 106/63
== END 2018-11-17 01:30 | disposition home or self-care (01) ==
LOC: ED 21:59
DX: J20.9 Acute bronchitis, unspecified (principal); I10 Essential (primary) hypertension; E11.9 Type 2 diabetes mellitus without complications; M19.90 Unspecified osteoarthritis, unspecified site; Z79.4 Long term (current) use of insulin; Z79.899 Other long term (current) drug therapy
CPT/HCPCS: 71046; 94640; 94644; 99283

== ENCOUNTER 2018-12-31 08:31 | Outpatient (CLI) | payer MEDICARE ==
[2018-12-31 10:46] LABS: Hematocrit 37.8 % (30.3-42.9); Hemoglobin 12.3 gm/dl (10.1-14.3); Mean Corpuscular HGB Conc 33 % (30-34); Mean Corpuscular Volume 92 fl (79-97); Red Cell Distribution Width 15.3 % (13.2-15.2)
[2018-12-31 10:53] LABS: Platelet Count 135 K/mm3 (140-440)
[2018-12-31 11:02] LABS: Calcium 8.9 mg/dL (8.4-10.2); Chol/HDL Ratio 1.8 %
[2019-01-02 10:54] LABS: Vitamin D, 25-OH, D2 <4 ng/mL
== END 2018-12-31 08:32 | disposition home or self-care (01) ==
LOC: LAB 08:31
PROVIDERS: ATTEND Internal Medicine
DX: E11.65 Type 2 diabetes mellitus with hyperglycemia (principal); E78.2 Mixed hyperlipidemia; R53.82 Chronic fatigue, unspecified; N18.9 Chronic kidney disease, unspecified; I12.9 Hypertensive chronic kidney disease with stage 1 through stage 4 chronic kidney disease, or unspecified chronic kidney disease; E11.22 Type 2 diabetes mellitus with diabetic chronic kidney disease
CPT/HCPCS: 36415; 80053; 80061; 82306; 82607; 83036; 84443; 85027

== ENCOUNTER 2019-01-27 07:05 | Outpatient (CLI) | payer MEDICARE ==
--- NOTE | 2019-01-27 14:43 | Mammography Report ---
DIGITAL SCREENING MAMMOGRAM WITH CAD, 01/27/2019 INDICATION: Routine screening mammography. Status post bilateral reduction mammoplasty in 2018 TECHNIQUE: Digital bilateral 2D mammography was obtained in the craniocaudal and mediolateral obliq ue projections. This examination was interpreted with the benefit of Computer-Aided Detection analysi s. COMPARISON: 04/05/2015 FINDINGS: Breast Density: The breasts are almost entirely fatty. There is no evidence of dominant mass, suspicious calcifications or architectural distortion in eithe r breast. Scattered bilateral calcifications with benign morphology typical of benign fat necrosis. T here were extensive in the right breast in the upper outer quadrant. IMPRESSION: No mammographic evidence of malignancy. Follow up recommendation: Routine yearly BI-RADS Category 2: Benign. A "normal" or negative report should not discourage follow up or biopsy of a clinically significant f inding. A written summary of these findings will be mailed to the patient. The patient will be entered into a mammography reporting system which will generate a reminder letter for the patient's next appointmen t at the appropriate interval. The [employer] recommends yearly mammograms starting at age 40 and continuing as l riki as a woman is in good health. Breast MRI is recommended for women with an approximate 20-25% or greater lifetime risk of breast cancer, including women with a strong family history of breast or ova german cancer or who have been treated for Hodgkin's disease. Signer Name: Kun Keane MD Signed: 01/27/2019 2:39 PM Workstation Name: [id number]
== END 2019-01-27 07:06 | disposition home or self-care (01) ==
LOC: MAMMO 07:05
PROVIDERS: ATTEND Internal Medicine
DX: Z12.31 Encounter for screening mammogram for malignant neoplasm of breast (principal); I10 Essential (primary) hypertension; E11.65 Type 2 diabetes mellitus with hyperglycemia
CPT/HCPCS: 77067

== ENCOUNTER 2019-03-18 06:54 | Emergency (ER) | payer MEDICARE ==
[2019-03-18 07:19] VITALS: BP 114/79
[2019-03-18] MEDS ORDERED: methylPREDNISolone Sod Succinate 125 MG/2 ML INJ IM ONE (09:07)
--- NOTE | 2019-03-18 09:30 | Emergency Department Report ---
ED Allergic Reaction HPI - General Chief complaint: Skin Rash Stated complaint: POSS ALLERGIC REACTION RASH Time Seen by Provider: 03/18/19 09:05 Source: patient Mode of arrival: Ambulatory Limitations: No Limitations - History of Present Illness MD Complaint: allergic reaction -: minutes(s), hour(s) Exposure: medication Symptoms: rash, itching Severity: mild Treatment Prior to Arrival: none - Related Data Home Medications Medication Instructions Recorded Confirmed Last Taken Gabapentin [Neurontin] 800 mg PO TID 05/04/13 04/12/17 04/10/17 glipiZIDE [Glucotrol Xl] 2.5 mg PO DAILY 04/12/17 04/12/17 04/10/17 Previous Rx's Medication Instructions Recorded Last Taken Type HYDROcodone/APAP 10-325 [[place] 1 each PO Q6HR PRN #20 tablet 05/04/13 04/10/17 Rx 10-325 mg TAB] Insulin NPH/Regular [NovoLIN 70/30] 12 unit SUB-Q BIDDIAB 30 Days 04/14/17 Unknown Rx units glipiZIDE XL [Glucotrol Xl] 5 mg PO QDDIAB #60 tablet 04/14/17 Unknown Rx ALBUTEROL Inhaler (OR & NICU) 2 puff IH Q4HR PRN #1 inhalation 11/17/18 Unknown Rx [ProAir HFA Inhaler] Azithromycin [Zithromax Z-SADE] 250 mg PO DAILY #6 tablet 11/17/18 Unknown Rx Benzonatate [Tessalon Perles] 100 mg PO Q8HR PRN #20 capsule 11/17/18 Unknown Rx Codeine Phosphate/Guaifenesin 180 ml PO Q12HR PRN #180 liquid 11/17/18 Unknown Rx [Guaifenesin-Codeine Syrup] predniSONE [Deltasone] 20 mg PO DAILY #15 tablet 11/17/18 Unknown Rx hydrOXYzine HCL [Atarax] 25 mg PO Q6HR PRN #20 tablet 03/18/19 Unknown Rx predniSONE [Deltasone] 50 mg PO QDAY #5 tab 03/18/19 Unknown Rx Allergies Allergy/AdvReac Type Severity Reaction Status Date / Time No Known Allergies Allergy Unverified 05/04/13 05:36 ED Review of Systems ROS: Stated complaint: POSS ALLERGIC REACTION RASH Other details as noted in HPI Comment: All other systems reviewed and negative Skin: rash ED Past Medical Hx - Past Medical History Previous Medical History?: Yes Hx Hypertension: Yes Hx Diabetes: Yes Hx Arthritis: Yes - Surgical History Past Surgical History?: Yes Additional Surgical History: gastric bypass 2012 - Social History Smoking Status: Never Smoker Substance Use Type: None - Medications Home Medications: Home Medications Medication Instructions Recorded Confirmed Last Taken Type Gabapentin [Neurontin] 800 mg PO TID 05/04/13 04/12/17 04/10/17 History HYDROcodone/APAP 10-325 [[place]eno 1 each PO Q6HR PRN #20 tablet 05/04/13 04/12/17 04/10/17 Rx 10-325 mg TAB] glipiZIDE [Glucotrol Xl] 2.5 mg PO DAILY 04/12/17 04/12/17 04/10/17 History Insulin NPH/Regular [NovoLIN 70/30] 12 unit SUB-Q BIDDIAB 30 Days 04/14/17 Unknown Rx units glipiZIDE XL [Glucotrol Xl] 5 mg PO QDDIAB #60 tablet 04/14/17 Unknown Rx ALBUTEROL Inhaler (OR & NICU) 2 puff IH Q4HR PRN #1 inhalation 11/17/18 Unknown Rx [ProAir HFA Inhaler] Azithromycin [Zithromax Z-SADE] 250 mg PO DAILY #6 tablet 11/17/18 Unknown Rx Benzonatate [Tessalon Perles] 100 mg PO Q8HR PRN #20 capsule 11/17/18 Unknown Rx Codeine Phosphate/Guaifenesin 180 ml PO Q12HR PRN #180 liquid 11/17/18 Unknown Rx [Guaifenesin-Codeine Syrup] predniSONE [Deltasone] 20 mg PO DAILY #15 tablet 11/17/18 Unknown Rx hydrOXYzine HCL [Atarax] 25 mg PO Q6HR PRN #20 tablet 03/18/19 Unknown Rx predniSONE [Deltasone] 50 mg PO QDAY #5 tab 03/18/19 Unknown Rx ED Physical Exam - General Limitations: No Limitations General appearance: alert, in no apparent distress - Head Head exam: Present: atraumatic, normocephalic - Eye Eye exam: Present: normal appearance - ENT ENT exam: Present: mucous membranes moist - Neck Neck exam: Present: normal inspection - Respiratory Respiratory exam: Present: normal lung sounds bilaterally. Absent: respiratory distress - Cardiovascular Cardiovascular Exam: Present: regular rate, normal rhythm. Absent: systolic murmur, diastolic murmur, rubs, gallop - GI/Abdominal GI/Abdominal exam: Present: soft, normal bowel sounds - Extremities Exam Extremities exam: Present: normal inspection - Back Exam Back exam: Present: normal inspection - Neurological Exam Neurological exam: Present: alert, oriented X3, CN II-XII intact - Psychiatric Psychiatric exam: Present: normal affect, normal mood - Skin Skin exam: Present: warm, normal color, other (we have erythematous plaque-like rash to the torso widths with pruritus noted. No pustules. No cellulitis. No lymphangitis. Few hives as well.). Absent: rash ED Course Vital Signs 03/18/19 07:17 Temperature 98.4 F Pulse Rate 100 H Respiratory 18 Rate Blood Pressure 114/79 O2 Sat by Pulse 99 Oximetry Critical care attestation.: If time is entered above; I have spent that time in minutes in the direct care of this critically ill patient, excluding procedure time. ED Disposition Clinical Impression: Rash Disposition: DC-01 TO HOME OR SELFCARE Is pt being admited?: No Does the pt Need Aspirin: No Condition: Stable Instructions: Acute Rash (ED), Allergies (ED) Referrals: [facility] [Provider Group] - 3-5 Days
== END 2019-03-18 09:47 | disposition home or self-care (01) ==
LOC: ED 06:54
DX: R21 Rash and other nonspecific skin eruption (principal); I10 Essential (primary) hypertension; E11.9 Type 2 diabetes mellitus without complications; M19.90 Unspecified osteoarthritis, unspecified site; Z98.84 Bariatric surgery status; Z79.899 Other long term (current) drug therapy; Z79.4 Long term (current) use of insulin
CPT/HCPCS: 96372; 99282; J2930

== ENCOUNTER 2020-07-15 05:46 | Day surgery (SDC) | payer MEDICARE ==
[2020-07-15] MEDS ORDERED: SODIUM CHLORIDE 0.9% 1000 ML 1,000 ML IV SCH (06:00)
[2020-07-15] MEDS ORDERED: ACETAMINOPHEN 500 MG TAB PO SCH (06:00)
[2020-07-15] MEDS ORDERED: MIDAZOLAM 2 MG/2 ML INJ IV NR (06:00)
--- NOTE | 2020-07-15 07:04 | Anesthesia Consultation ---
Anesthesia Consult and Med Hx Date of service: 07/15/20 - Airway Anesthetic Teeth Evaluation: Good ROM Head & Neck: Adequate Mental/Hyoid Distance: Adequate Mallampati Class: Class II Intubation Access Assessment: Good - Pulmonary Exam CTA: Yes - Cardiac Exam Cardiac Exam: RRR - Pre-Operative Health Status ASA Pre-Surgery Classification: ASA3 Proposed Anesthetic Plan: General - Pulmonary Hx Smoking: No Hx Asthma: No COPD: No Hx Pneumonia: No Hx Sleep Apnea: No - Cardiovascular System Hx Hypertension: Yes Hx Heart Attack/AMI: No Hx Pacemaker: No Hx Internal Defibrillator: No Hx Heart Murmur: No - Central Nervous System Hx Seizures: No Hx Back Pain: Yes Hx Psychiatric Problems: No - Endocrine Hx End Stage Renal Disease: No Hx Cirrhosis: No Hx Liver Disease: No Hx Non-Insulin Dependent Diabetes: Yes - Hematic Hx Anemia: No Hx Sickle Cell Disease: No - Other Systems Hx Alcohol Use: No Hx Substance Use: No Hx Cancer: No Hx Obesity: Yes
--- NOTE | 2020-07-15 07:05 | Anesthesia Day of Surgery ---
Anesthesia Day of Surgery - Day of Surgery Patient Examined: Yes Patient H&P Reviewed: Yes Patient is NPO: Yes
[2020-07-15 07:08] LABS: Hemoglobin 11.8 gm/dl (10.1-14.3); Mean Corpuscular HGB Conc 32 % (30-34); Mean Corpuscular Volume 90 fl (79-97); Platelet Count 268 K/mm3 (140-440); Red Blood Count 4.11 M/mm3 (3.65-5.03); Red Cell Distribution Width 15.4 % (13.2-15.2)
[2020-07-15] MEDS ORDERED: SODIUM CHLORIDE P/F VIAL 10 ML 10 ML ONE (07:10)
[2020-07-15] MEDS ORDERED: LIDOCAINE 0.5%/EPINEPHRINE 1:200,000 VIAL (50 ML) MDV INFILTRATI ONE ×2 (07:10→08:51)
[2020-07-15] MEDS ORDERED: BUPIVACAINE/PF (0.5%) 5 MG/1 ML 30 ML VIAL INFILTRATI ONE (07:10)
[2020-07-15] MEDS ORDERED: SUCCINYLCHOLINE CHLORIDE 200 MG/10 ML INJ MDV ONE (07:10)
[2020-07-15] MEDS ORDERED: LIDOCAINE MPF (2%) 20 MG/1 ML VIAL 5 ML ONE (07:10)
[2020-07-15] MEDS ORDERED: MAGNESIUM SULFATE 2 GM/50 ML BAG IV ONE (07:10)
[2020-07-15] MEDS ORDERED: GELATIN SPONGE SIZE 100 TP ONE ×2 (07:10→07:25)
[2020-07-15] MEDS ORDERED: propofoL 200 MG/20 ML VIAL IV ONE (07:11)
[2020-07-15] MEDS ORDERED: THROMBIN (RECOMBINANT) 5,000 UNIT VIAL TP ONE ×2 (07:11→08:49)
[2020-07-15] MEDS ORDERED: KETAMINE/STERILE WATER 50 MG/ML SYRINGE ONE (07:11)
[2020-07-15] MEDS ORDERED: BACITRACIN 50,000 UNIT VIAL ONE (07:11)
[2020-07-15] MEDS ORDERED: fentaNYL 100 MCG/2 ML INJ IV PRN (07:25)
[2020-07-15] MEDS ORDERED: ONDANSETRON 4 MG/2 ML INJ IV PRN (07:25)
[2020-07-15] MEDS ORDERED: VASOPRESSIN 20 UNIT/1 ML INJ ONE (07:36)
[2020-07-15] MEDS ORDERED: dexAMETHasone 20 MG/5 ML VIAL ONE (08:00)
[2020-07-15] MEDS ORDERED: GABAPENTIN 300 MG CAP PO NR (08:00)
[2020-07-15] MEDS ORDERED: NEOSTIGMINE 10MG/10 ML INJ MDV ONE (08:00)
[2020-07-15] MEDS ORDERED: ceFAZolin/STERILE WATER 2 GM/20 ML SYRINGE IV NR (08:00)
[2020-07-15] MEDS ORDERED: GLYCOPYRROLATE 0.4 MG/2 ML INJ ONE (08:00)
[2020-07-15] MEDS ORDERED: SODIUM CHLORIDE 0.9% IRR 1,500 ML BOTTLE IR ONE (08:49)
[2020-07-15] MEDS ORDERED: BUPIVACAINE /DEX-WATER 0.75% (2 ML) AMPULE INFILTRATI ONE (08:50)
[2020-07-15] MEDS ORDERED: BACITRACIN 50,000 UNIT VIAL IR ONE (08:50)
[2020-07-15] MEDS ORDERED: GELATIN SPONGE 12 X 7 TP ONE (08:52)
[2020-07-15] MEDS ORDERED: ROCURONIUM 50 MG/5 ML INJ IV ONE (09:59)
--- NOTE | 2020-07-15 10:11 | Post Operative Note ---
Pre-op diagnosis: Failed Back syndrome, lumbosacral radiculitis Post-op diagnosis: same Procedure: T9 Laminectomy for placement of spinal cord stimulator Anesthesia: MORGANA Surgeon: EDWIN BANEGAS II Estimated blood loss: minimal Pathology: none Condition: stable Disposition: PACU
[2020-07-15] MEDS ORDERED: oxyCODONE /ACETAMINOPHEN 5-325MG TAB PO SCH (11:00)
[2020-07-15] MEDS ORDERED: oxyCODONE /ACETAMINOPHEN 5-325MG TAB ONE (11:17)
--- NOTE | 2020-07-15 12:02 | Post Anesthesia Evaluation ---
- Post Anesthesia Evaluation Patient Participated: Yes Airway Patent: Yes Stable Respiratory Function: Yes Nausea/Vomiting: No Temp > 96.8F: Yes Pain Manageable: Yes Adequeate Hydration: Yes Anesthesia Complications: No
[2020-07-15 13:11] VITALS: BP 122/82
--- NOTE | 2020-07-15 16:10 | XRay Report ---
CLINICAL INDICATION: BACK PAIN TECHNICAL DATA: C-arm imaging was performed. 17.8 seconds. Single image submitted FINDINGS: C-arm imaging was performed. Spinal stimulator present. IMPRESSION: C-arm utilization as noted Signer Name: Daniele Guthrie MD Signed: 07/15/2020 4:06 PM Workstation Name: [id number]
--- NOTE | 2020-07-26 21:19 | Operative Report ---
PREOPERATIVE DIAGNOSIS: Failed back syndrome, lumbosacral radiculitis. POSTOPERATIVE DIAGNOSIS: Failed back syndrome, lumbosacral radiculitis. PROCEDURES PERFORMED: 1. T9 laminectomy for placement of spinal cord stimulator paddle and electrode ([employer] Wavewriter Alpha) 2. Use of intraoperative nerve monitoring. SURGEON: Dr. Gianfranco Beach. SUPERVISOR YARD: None. ANESTHESIA: General endotracheal anesthesia. ESTIMATED BLOOD LOSS: 25 mL. FINDINGS: A T9 laminectomy for placement of epidural paddle. SPECIMENS: None. DISPOSITION: Stable, extubated to PACU. COMPLICATIONS: None apparent. BRIEF HISTORY: Derik Moyer is a 64-year-old female that presented to [facility] on 07/15/2020 for surgical intervention. She has a history of failed back syndrome and recalcitrant lumbosacral radiculopathy. She underwent spinal cord stimulator trial, which was performed by Dr. Tash Carias. She reported significant relief of her pain and requested permanent implantation. I reviewed all pertinent risks and benefits of the operation. She agreed to proceed. DESCRIPTION OF PROCEDURE: The patient was taken to the operating theater by Anesthesia. She was intubated without difficulty. She was positioned prone on Elpidio frame. Please note that all pressure points were padded to prevent peripheral nerve injury. The eyes were lubricated and taped shut to prevent corneal abrasion. The back and left gluteal region were prepped and draped in the usual sterile fashion. AP and lateral fluoroscopy was used to determine the position of the thoracic skin incision. The incision was centered over the T9 lamina. The skin was opened with a #10 scalpel blade. Further dissection was performed with the electrosurgical generator of Panchito Garsia. The spinous process of T9 was exposed. The laminae were exposed in subperiosteal fashion bilaterally. Self-retaining retractors were utilized to maintain the exposure. The T9 lamina was confirmed with AP and lateral fluoroscopy using a 5 mm vazquez dre. A midline laminotomy was created. The ligamentum flavum was removed with 2-0 and 3-0 Kerrison rongeurs. The epidural space was developed. The undersurface of the T8 lamina was also removed with 2-0 and 3-0 Kerrison rongeurs. A [place] was used to inspect the epidural space to ensure there was no obstruction. The [employer] 32 contact rechargeable paddle electrode was placed without resistance into the epidural space. AP fluoroscopy was utilized to confirm midline placement at the appropriate level. After this was deemed satisfactory, the electrode extensions were tied together with 3-0 silk tie. A 2-0 silk suture was used to anchor the extensions to the supraspinous ligament. A tunneling device was used to pass the electrodes to the left gluteal generator site. The generator incision was created with #10 scalpel blade. Further dissection was performed with electrosurgical generator of Panchito Garsia. The inferior aspect of the incision was undermined to create a small generator pocket. The electrodes were passed to the generator site and connected to the generator. The impedances were checked and verified before securing the extensions. The leads were tucked in the undersurface of the generator, which was placed in the pocket Both incisions were irrigated copiously with bacitracin infused saline. In the thoracic incision, the muscle and fascia were closed with 0 polyglactin synthetic absorbable suture. The dermis was closed with 2-0 polyglactin synthetic absorbable suture in an inverted fashion. The skin was reapproximated with denys. At the generator site, the dermis was closed with 2-0 polyglactin synthetic absorbable suture and the skin was reapproximated using denys. Please note that all needle counts, sponge counts and instrument counts were correct at the end of the case x 2. There were no complications apparent. The patient was returned to Anesthesia, where she was extubated without delay. She was transferred to the recovery unit in stable condition. [facility]# [id number] MEÑO/JUANJO BOWMAN
== END 2020-07-15 05:47 | disposition home or self-care (01) ==
LOC: OR 05:46
PROVIDERS: ATTEND Psychiatry & Neurology Neurology
DX: M96.1 Postlaminectomy syndrome, not elsewhere classified (principal); M54.17 Radiculopathy, lumbosacral region; E11.65 Type 2 diabetes mellitus with hyperglycemia; I10 Essential (primary) hypertension; M19.90 Unspecified osteoarthritis, unspecified site; E11.01 Type 2 diabetes mellitus with hyperosmolarity with coma; E78.00 Pure hypercholesterolemia, unspecified; Z98.41 Cataract extraction status, right eye; Z98.42 Cataract extraction status, left eye; Z91.81 History of falling; Z79.899 Other long term (current) drug therapy; Z79.4 Long term (current) use of insulin; Z98.890 Other specified postprocedural states
CPT/HCPCS: 36415; 63655; 63685; 72020; 80048; 82962; 85027; 86850; 86900; 86901; A4649; C1778; J0330; J0690; J1100; J2250; J2704; J2710; J3475; J3490; J7030

== ENCOUNTER 2021-10-28 06:37 | Outpatient (CLI) | payer MEDICARE ==
--- NOTE | 2021-10-28 09:25 | Magnetic Resonance Report ---
MRI RIGHT SHOULDER WITHOUT CONTRAST INDICATION: M25.511 PAIN IN RIGHT SHOULDER. COMPARISON: None available. TECHNIQUE: Multisequence, multiplanar images were obtained. FINDINGS: ACROMIOCLAVICULAR JOINT: Advanced AC joint arthrosis with moderate-sized osteophyte arising from dist al clavicle resulting in rotator cuff encroachment ACROMION: Type II SUPRASPINATUS: Large chronic full-thickness tear involving entire width of supraspinatus with retract ion to glenohumeral joint and moderate fatty muscle atrophy INFRASPINATUS: Large full-thickness chronic tear with retraction to glenohumeral joint with moderate fatty muscle atrophy SUBSCAPULARIS: No significant abnormality. BICEPS TENDON, LONG HEAD: No significant abnormality. SUBACROMIAL/SUBDELTOID SPACE: No significant abnormality. GLENOID LABRUM: Diffuse labral fraying with degenerative signal ARTICULAR CARTILAGE: Moderate to advanced degenerative arthrosis glenohumeral joint with moderate-siz ed osteophyte arising from the inferomedial humeral head and prominent subchondral cystic changes hum eral head and glenoid. JOINT SPACE AND CAPSULE: Superior migration of humeral head arthrosis with undersurface of acromion. BONES: No significant bone marrow edema. No fracture. No osseous lesion. SUBCUTANEOUS SOFT TISSUES: No significant abnormality. ADDITIONAL FINDINGS: None. IMPRESSION: 1. Moderately advanced rotator cuff arthropathy glenohumeral joint. 2. 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 Rotator cuff encroachment secondary to AC joint arthrosis Signer Name: Adin Robbins MD Signed: 10/28/2021 9:21 AM Workstation Name: [id number]
== END 2021-10-28 06:38 | disposition home or self-care (01) ==
LOC: MRI 06:37
PROVIDERS: ATTEND Orthopaedic Surgery
DX: M19.011 Primary osteoarthritis, right shoulder (principal); M75.101 Unspecified rotator cuff tear or rupture of right shoulder, not specified as traumatic